=== PATIENT | male | born 1990 | race African-American/Black ===

== ENCOUNTER → 2019-01-21 | Outpatient (CLI) | payer OTHER ==
--- NOTE | 2019-01-21 14:49 | US ---
EXAMINATION TYPE: US neck soft tissue DATE OF EXAM: 01/21/2019 COMPARISON: NONE CLINICAL HISTORY: L04.9 Acute lymphadenitis. Patient seen at 's office 2 weeks prior for tonsilitis. Has been off his antibiotic for 3 days. TECHNIQUE/FINDINGS: Targeted ultrasound was performed of the neck bilaterally using grayscale and col or imaging. Multiple enlarged lymph nodes. The largest is seen on left measuring 2.8 x 1.5 x 2.2cm. IMPRESSION: Enlarged abnormal lymph nodes, particularly around the left submandibular gland measuring up to 1.5 cm. In this patient with a recent tonsillitis these nodes could be reactive. Short-term re peat ultrasound could be performed in 3 weeks. If no resolution at that time fine-needle aspiration w ould be recommended for the largest lymph node.
== END | disposition home or self-care (01) ==
LOC: RADUSWWP 13:58
PROVIDERS: ATTEND Internal Medicine
DX: R59.1 Generalized enlarged lymph nodes (principal)
CPT/HCPCS: 76536

== ENCOUNTER → 2019-02-18 | Outpatient (CLI) | payer OTHER ==
--- NOTE | 2019-02-19 09:06 | US ---
EXAMINATION TYPE: US thyroid st tissue head/neck DATE OF EXAM: 02/18/2019 COMPARISON: Prior ultrasound one month earlier. CLINICAL HISTORY: R59.0 Localized enlarged lymph nodes. h/o tonsilitis, enlarged lymph nodes on bila teral neck 4 weeks ago, reassess today size of nodes, patient done with antibiotics. Right submandibular largest lymph node = 2.7 x 1.5 x 1.2cm, some fatty hilum was seen at today's exam Left submandibular largest lymph node = 1.6 x 1.5 x 0.7cm, chain of lymph nodes seen Persistent prominent and slightly enlarged bilateral submandibular lymph nodes with persistent eccent abi cortical thickening, they are slightly smaller in size from prior study. No new concerning mass o r fluid collection. IMPRESSION: Findings favor resolving infectious or inflammatory process. Consider continued imaging follow-up to document resolution to subcentimeter on short axis otherwise further workup with contras t-enhanced CT or MRI may be advised. IMPRESSION:
== END | disposition home or self-care (01) ==
LOC: RADUSWWP 16:30
PROVIDERS: ATTEND Internal Medicine
DX: R59.0 Localized enlarged lymph nodes (principal)
CPT/HCPCS: 76536